=== PATIENT | male | born 1955 | race Caucasian/White ===

== ENCOUNTER → 2019-06-30 | Outpatient (CLI) | payer BC ==
--- NOTE | 2019-07-01 08:47 | RADIOLOGY REPORT (SQ) ---
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 TECHNIQUE: Sagittal and Axial imaging includes T1, T2, STIR and gradient echo sequences. Coronal T2/ HASTE imaging. LIMITATIONS: None. FINDINGS: VISUALIZED UPPER ABDOMEN: Limited evaluation. No acute or suspicious findings suggested. SEGMENTATION: No transitional anatomy. The lowest well-developed disc space is labeled L5-S1. ALIGNMENT: Mild convex leftward lumbar curvature VERTEBRAE: No compression deformities BONE MARROW: There is mixed fatty and sclerotic vertebral body endplate change on the right at L4-5 DISC SIGNAL: Disc space loss of height with decreased T2 weighted intervertebral disc signal at L3-4, L4-5, L5-S1 POSTERIOR ELEMENTS: Generally intact. No pars defect evident. HARDWARE: None in the spine. CORD AND CONUS: Normal in size and signal intensity. Conus at the T12-L1 level. SOFT TISSUES: No aortic aneurysm seen. No bulky retroperitoneal adenopathy or mass. No paraspinal mas s or fluid. T11-12: Mild bilateral facet arthropathy. No central or foraminal stenosis T12-L1: Mild bilateral facet arthropathy. No central or foraminal stenosis L1-L2: Mild bilateral facet arthropathy. No central or foraminal stenosis. L2-L3: Minimal posterior disc bulging, moderate bilateral facet and ligament hypertrophy. No signifi cant central or foraminal stenosis L3-L4: Broad diffuse mild disc bulging and moderate bilateral facet and ligament hypertrophy are pres ent. There is a right paracentral disc protrusion/ herniation, flattening the rightward thecal sac n ear the takeoff of the right L4 nerve root in the lateral recess. This is best shown on axial T2 olena ge 18/34. Mild central canal narrowing. Elsewhere at L3-4, there is moderate right and mild left foraminal narrowing without definite exit L3 nerve root impingement. L4-L5: Broad diffuse posterior disc bulge and bony spurring, moderate bilateral facet and ligament hy pertrophy and prominent dorsal epidural fat causes mild central canal stenosis with partial effacemen t of the CSF around the lumbar nerve roots. There is asymmetric flattening of the thecal sac near th e takeoff of the right proximal L5 nerve root in the lateral recess. These findings are best shown o n axial T2 images -24. Elsewhere at L4-5, there is moderate to high-grade right foraminal narrowing as the nerve root exits the neural foramen, best shown on sagittal T2 images 4-6, and axial T2 image 23. Moderate left paula inal narrowing without definite exit left L4 nerve root impingement. L5-S1: Moderate bilateral facet hypertrophy. Broad diffuse posterior disc bulge and bony spurring le ft greater than right. No central canal narrowing. Mild flattening of the thecal sac at the takeoff of the left proximal left S1 nerve root in the lateral recess, best shown on axial T2 image 28-30 . No central stenosis. Mild right foraminal narrowing. Moderate to high-grade left foraminal narrowi ng with partial effacement of the fat around the exiting left L5 nerve root in the neural foramen bes t shown on sagittal images 12-14. SACRUM: Visualized upper sacrum intact. OTHER: No other significant findings. IMPRESSION: Right paracentral disc protrusion/herniation at L3-4 Significant degenerative disc changes at L3-4, L4-5, L5-S1 as above. TECHNICAL DOCUMENTATION: JOB ID: [id number] 2010 [employer]- All Rights Reserved Reading location - IP/workstation name: [email or web address]
== END ==
LOC: RAD 18:00
PROVIDERS: ATTEND Internal Medicine
DX: M51.16 Intervertebral disc disorders with radiculopathy, lumbar region (principal)
CPT/HCPCS: 72148